=== PATIENT | male | born 1955 | race Caucasian/White ===

== ENCOUNTER 2017-11-26 10:07 | Emergency (ER) | payer OTHER ==
--- NOTE | 2017-11-26 10:48 | EDM.PDOC ---
ED HPI GENERAL MEDICAL PROBLEM - General Chief Complaint: Syncope Stated Complaint: [facility] Time Seen by Provider: 11/26/17 10:30 Source of Information: Reports: Patient, EMS History Limitations: Reports: No Limitations - History of Present Illness INITIAL COMMENTS - FREE TEXT/NARRATIVE: 62-year-old male had to fairly intense near syncopal episodes this morning while at home, it occurred after walking his dog at which time he just didn't feel right. He does have a history of paroxysmal atrial fibrillation and he remembers around 4:00 in the morning when he felt his heart was beating irregular. He has no significant shortness of breath, he had some slight chest tightness earlier today. His chief complaint and main concern was his two near syncopal episodes this morning. Severity: Moderate Associated Symptoms: Reports: Chest Pain (Brief slight pressure), Weakness. Denies: Fever/Chills, Headaches, Nausea/Vomiting, Shortness of Breath Denies Pain Score (Numeric/FACES): 0 - Related Data Allergies Allergy/AdvReac Type Severity Reaction Status Date / Time amoxicillin Allergy Nausea Verified 11/26/17 10:18 Home Meds: Home Meds Aspirin [Adult Low Dose Aspirin EC] 81 mg PO DAILY 11/26/17 [History] Multivitamin with Minerals [Multiple Vitamin] 1 tab PO DAILY 11/26/17 [History] amLODIPine [Norvasc] 5 mg PO BEDTIME 11/26/17 [History] Past Medical History Cardiovascular History: Reports: Afib, Hypertension Musculoskeletal History: Reports: Fracture Other Musculoskeletal History: l leg - Infectious Disease History Infectious Disease History: Reports: Chicken Pox, Measles, Mumps - Past Surgical History HEENT Surgical History: Reports: Cataract Surgery Endocrine Surgical History: Reports: Thyroidectomy Other Endocrine Surgeries/Procedures: Partial thyroidectomy Social & Family History - Tobacco Use Smoking Status *Q: Never Smoker Second Hand Smoke Exposure: No - Caffeine Use Caffeine Use: Reports: Soda - Alcohol Use Days Per Week of Alcohol Use: 0 - Recreational Drug Use Recreational Drug Use: No ED ROS GENERAL - Review of Systems Review Of Systems: See Below Constitutional: Denies: Fever, Chills HEENT: Reports: No Symptoms Respiratory: Denies: Shortness of Breath GI/Abdominal: Denies: Abdominal Pain, Nausea, Vomiting : Reports: No Symptoms Skin: Reports: Diaphoresis (Became very diaphoretic this morning) Neurological: Denies: Confusion, Headache, Paresthesia Psychiatric: Reports: No Symptoms ED EXAM, GENERAL - Physical Exam Exam: See Below Exam Limited By: No Limitations General Appearance: Alert, No Apparent Distress Eye Exam: Bilateral Eye: Normal Inspection Head: Atraumatic Respiratory/Chest: No Respiratory Distress, Lungs Clear Cardiovascular: Irregularly Irregular GI/Abdominal: Soft, Non-Tender Extremities: Normal Inspection. No: Pedal Edema Neurological: Alert, Oriented Psychiatric: Normal Affect, Normal Mood Skin Exam: Warm, Dry EKG INTERPRETATION Rhythm: A-Fib Course - Vital Signs Last Recorded V/S: Last Vital Signs Temp 96.9 F 11/26/17 10:28 Pulse 74 11/26/17 10:28 Resp 16 11/26/17 10:28 BP 118/49 L 11/26/17 10:28 Pulse Ox 99 11/26/17 10:28 - Orders/Labs/Meds Orders: Active Orders 24 hr Category Date Time Status EKG Documentation Completion [RC] ASDIRECTED Care 11/26/17 10:44 Active EKG 12 Lead [EK] Routine Ther 11/26/17 10:44 Ordered Labs: Laboratory Tests 11/26/17 11/26/17 Range/Units 10:53 10:53 WBC 9.0 (4.5-11.0) K/uL RBC 4.64 (4.30-5.90) M/uL Hgb 14.2 (12.0-15.0) g/dL Hct 40.3 (40.0-54.0) % MCV 87 (80-98) fL MCH 31 (27-31) pg MCHC 35 (32-36) % Plt Count 228 (150-400) K/uL Neut % (Auto) 80 H (36-66) % Lymph % (Auto) 13 L (24-44) % Sutton % (Auto) 6 (2-6) % Eos % (Auto) 1 L (2-4) % Baso % (Auto) 0 (0-1) % Sodium 144 (140-148) mmol/L Potassium 3.8 (3.6-5.2) mmol/L Chloride 108 (100-108) mmol/L Carbon Dioxide 28 (21-32) mmol/L Anion Gap 8.3 (5.0-14.0) mmol/L BUN 17 (7-18) mg/dL Creatinine 1.1 (0.8-1.3) mg/dL Est Cr Clr Drug Dosing 80.85 mL/min Estimated GFR (MDRD) > 60 (>60) Glucose 100 (74-106) mg/dL Calcium 8.3 L (8.5-10.1) mg/dL Total Bilirubin 0.7 (0.2-1.0) mg/dL AST 23 (15-37) U/L ALT 28 (12-78) U/L Alkaline Phosphatase 71 (46-116) U/L Troponin I < 0.017 (0.000-0.056) ng/mL Total Protein 7.0 (6.4-8.2) g/dL Albumin 3.8 (3.4-5.0) g/dL Globulin 3.2 (2.3-3.5) g/dL Albumin/Globulin Ratio 1.2 (1.2-2.2) Meds: Medications Discontinued Medications Generic Name Dose Route Start Last Admin Trade Name Freq PRN Reason Stop Dose Admin Sodium Chloride 1,000 mls @ 100 mls/hr 11/26/17 12:30 11/26/17 11:48 Normal Saline IV 100 mls/hr ASDIRECTED WEI Administration Propofol 80 mg 11/26/17 11:35 11/26/17 12:26 Diprivan 20 Ml IVPUSH 11/26/17 11:36 Not Given ONETIME ONE Propofol 100 mg 11/26/17 12:08 11/26/17 12:11 Diprivan 20 Ml IVPUSH 11/26/17 12:09 100 mg ONETIME ONE Administration - Re-Assessments/Exams Free Text/Narrative Re-Assessment/Exam: 11/26/17 10:47 EKG confirmed atrial fibrillation. He has excellent rate control. His last oral intake was 3-1/2 hours ago. A CBC, CMP and troponin were obtained, if those return reassuring we'll consider an electrocardioversion. 11/26/17 12:08 Labs returned reassuring. Patient remained in atrial fibrillation, so after consent using electrocardioversion the patient was converted to normal sinus rhythm. 100 mg of propofol was used for sedation. Patient tolerated the procedure well. Post procedure EKG was normal. 11/26/17 12:25 Patient remained stable and in sinus rhythm with occasional PACs. 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 Return sooner if worsening or you develop other concerns. - My Orders Last 24 Hours: My Active Orders 11/26/17 10:44 EKG Documentation Completion [RC] ASDIRECTED EKG 12 Lead [EK] Routine - Assessment/Plan Last 24 Hours: My Active Orders 11/26/17 10:44 EKG Documentation Completion [RC] ASDIRECTED EKG 12 Lead [EK] Routine
[2017-11-26] MEDS ORDERED: Propofol 200 MG/20 ML SDV IVPUSH ONE ×2 (11:35→12:08)
--- NOTE | 2017-11-26 12:00 | PCM.PRNOTE ---
- Free Text/Narrative Note: Date of service: 11/26/2017 Proposed procedure: synchronized cardioversion Preprocedure diagnosis: paroxysmal atrial fibrillation with presyncope Post procedure diagnosis: paroxysmal atrial fibrillation with presyncope Indication for procedure: Osman was evaluated today for management atrial fibrillation with symptoms of presyncope. Synchronized cardioversion was recommended as a primary treatment. Description of the procedure: Osman is currently located patent in the emergency room. We have reviewed the potential risks of electrical cardioversion including but not limited to: Superficial skin green, ineffective treatment, other arrhythmias, reaction to anesthesia medications or potentially asystole. The benefits of the procedure have also been reviewed. At this time the patient wishes to proceed with electrical cardioversion. All necessary pre- procedure information and paperwork has been provided and completed, respectively. The patient was connected to cardioversion pads and monitoring equipment per protocol. Prior to the procedure, a timeout was held with nursing and anesthesia present to confirm the right patient and right procedure. Once appropriate anesthesia was applied the machine was charged to 200 Joules and a synchronized electrical shock was applied. The patient was successfully converted to normal sinus rhythm based on telemetry monitoring. Barrie will remain in the ER until anesthesia has dissipated and the he is more awake and alert. They will then be discharged to home once medically stable. There were no immediate complications noted from the procedure. Post procedure EKG is pending at the time of dictation. Shemar Yan M.D.
[2017-11-26] MEDS ORDERED: Sodium Chloride 0.9% 1,000 ML IV SCH (12:30)
== END 2017-11-26 12:47 | disposition home or self-care (01) ==
LOC: JP.ED 10:07
DX: I48.0 Paroxysmal atrial fibrillation (principal); R55 Syncope and collapse; I10 Essential (primary) hypertension; Z79.82 Long term (current) use of aspirin; Z79.899 Other long term (current) drug therapy; Z88.1 Allergy status to other antibiotic agents; Z90.89 Acquired absence of other organs
CPT/HCPCS: 36415; 80053; 84484; 85025; 92960; 93005; 96361; 96374; 99284; J2704; J7030